=== PATIENT | male | born 1940 | race Caucasian/White ===

== ENCOUNTER → 2019-03-18 | Outpatient (CLI) | payer MEDICARE, OTHER ==
[~2019-03-18] MED LIST: ACET325 PO; ALBU2.5V5 INH; AMOCLA875 PO; ASPI81CH PO; Amaryl4 MG PO; BENZ100A PO; BYDUREON P2 MG/0.65 PO; CEPH500 PO; Colace100 MG PO; Crestor20 MG PO; ESCI10 PO; FERATE240 MG PO; FLAX SEED OIL1000 MG PO; GENPREOPSU UD; GLUC500 PO; Humalog100 UNIT/1 SC; INSUASPI; INSULANPEN SC; LUTEIN20 MG PO; METF500C PO; NAPR500EC PO; OXYM.05NI INH; Omeprazole20 M1 PO; PIME1CR TOP; Prinivil10 MG PO; TAMS.4ER PO; TRAZ100 PO; Vsl#3 Capsule1 EACH PO; XELPROS2.5 ML BOTHEYES
[2019-03-18 15:12] LABS: BASOPHILS ABSOLUTE AUTO 0.03 K/mm3 (0.00-0.23); BASOPHILS PERCENT AUTO 0 % (0-2); EOSINOPHILS PERCENT AUTO 0 % (0-6); Hematocrit 35.4 % (37.0-53.0); Hemoglobin 11.3 g/dL (13.5-17.5); IMMATURE GRAN ABSOLUTE AUTO 0.09 K/mm3 (0.00-0.10); IMMATURE GRAN PERCENT AUTO 1 % (0-1); LYMPHOCYTES ABSOLUTE AUTO 1.31 K/mm3 (0.84-5.20); LYMPHOCYTES PERCENT AUTO 9 % (21-46); MONOCYTES ABSOLUTE AUTO 1.08 K/mm3 (0.16-1.47); MONOCYTES PERCENT AUTO 7 % (4-13); Mean Corpuscular HGB 25.3 pg (26.0-34.0); Mean Corpuscular HGB Conc 31.9 g/dL (31.5-36.5); Mean Corpuscular Volume 79 fL (80-100); Mean Platelet Volume 9.1 fL (9.1-12.4); NEUTROPHILS ABSOLUTE AUTO 12.98 K/mm3 (1.96-9.15); NEUTROPHILS PERCENT AUTO 84 % (41-73); Platelet Count 380 K/mm3 (150-400); RDW Coefficient Variation 16.9 % (11.7-14.2); RDW Standard Deviation 48.7 fL (35.1-46.3); Red Blood Cell Count 4.47 M/mm3 (4.30-5.90); White Blood Cell Count 15.49 K/mm3 (4.00-11.30)
== END | disposition home or self-care (01) ==
LOC: LAB EV 15:06 → LAB SHORT 15:06
PROVIDERS: Physician Assistant
DX: K92.2 Gastrointestinal hemorrhage, unspecified (principal)
CPT/HCPCS: 85025

== ENCOUNTER → 2019-03-19 | Outpatient (CLI) | payer MEDICARE, OTHER ==
[2019-03-19 13:25] LABS: BASOPHILS ABSOLUTE AUTO 0.03 K/mm3 (0.00-0.23); BASOPHILS PERCENT AUTO 0 % (0-2); EOSINOPHILS ABSOLUTE AUTO 0.02 K/mm3 (0.00-0.68); EOSINOPHILS PERCENT AUTO 0 % (0-6); Hematocrit 34.5 % (37.0-53.0); IMMATURE GRAN ABSOLUTE AUTO 0.11 K/mm3 (0.00-0.10); IMMATURE GRAN PERCENT AUTO 1 % (0-1); LYMPHOCYTES ABSOLUTE AUTO 1.31 K/mm3 (0.84-5.20); LYMPHOCYTES PERCENT AUTO 9 % (21-46); MONOCYTES ABSOLUTE AUTO 1.04 K/mm3 (0.16-1.47); MONOCYTES PERCENT AUTO 7 % (4-13); Mean Corpuscular HGB 25.4 pg (26.0-34.0); Mean Corpuscular HGB Conc 31.9 g/dL (31.5-36.5); Mean Corpuscular Volume 80 fL (80-100); Mean Platelet Volume 8.9 fL (9.1-12.4); NEUTROPHILS ABSOLUTE AUTO 12.17 K/mm3 (1.96-9.15); NEUTROPHILS PERCENT AUTO 83 % (41-73); Platelet Count 349 K/mm3 (150-400); RDW Coefficient Variation 16.8 % (11.7-14.2); RDW Standard Deviation 47.8 fL (35.1-46.3); Red Blood Cell Count 4.33 M/mm3 (4.30-5.90); White Blood Cell Count 14.68 K/mm3 (4.00-11.30)
== END ==
LOC: LAB EV 13:20 → LAB SHORT 13:20
PROVIDERS: Physician Assistant
DX: K92.2 Gastrointestinal hemorrhage, unspecified (principal)
CPT/HCPCS: 85025

== ENCOUNTER → 2019-03-21 | Outpatient (CLI) | payer MEDICARE, OTHER ==
[2019-03-22 14:01] LABS: Stool Occult Blood Guaiac 1 Pos (Neg)
[2019-03-22 14:02] LABS: Stool Occult Blood Guaiac 2 Neg (Neg)
== END | disposition home or self-care (01) ==
LOC: LAB SHORT 08:45 → LAB EV 08:45
PROVIDERS: Physician Assistant
DX: K92.2 Gastrointestinal hemorrhage, unspecified (principal)
CPT/HCPCS: 82272

== ENCOUNTER 2019-04-01 08:14 | Day surgery (SDC) | payer MEDICARE, OTHER ==
[~2019-04-01] VITALS: Ht 175.3 cm; Wt 85.3 kg
[~2019-04-01 08:14] MED LIST changes: -ALBU2.5V5 INH; -AMOCLA875 PO; -BENZ100A PO; -BYDUREON P2 MG/0.65 PO; -Colace100 MG PO; -Crestor20 MG PO; -ESCI10 PO; -FERATE240 MG PO; -FLAX SEED OIL1000 MG PO; -GENPREOPSU UD; -Humalog100 UNIT/1 SC; -INSULANPEN SC; -METF500C PO; -OXYM.05NI INH; -Omeprazole20 M1 PO; -Prinivil10 MG PO; -TRAZ100 PO; -Vsl#3 Capsule1 EACH PO; -XELPROS2.5 ML BOTHEYES
== END 2019-04-01 08:45 | disposition home or self-care (01) ==
LOC: ORSCSDS 08:14
PROVIDERS: Internal Medicine Gastroenterology
PROC: 0DB98ZX Excision of Duodenum, Via Natural or Artificial Opening Endoscopic, Diagnostic (ICD-10-PCS; principal; 2019-04-01 09:30)
PROC: 0DJD8ZZ Inspection of Lower Intestinal Tract, Via Natural or Artificial Opening Endoscopic (ICD-10-PCS; principal; 2019-04-01 09:30)
PROC: 0DB68ZX Excision of Stomach, Via Natural or Artificial Opening Endoscopic, Diagnostic (ICD-10-PCS; principal; 2019-04-01 09:30)
DX: D50.9 Iron deficiency anemia, unspecified (principal); K29.80 Duodenitis without bleeding; K62.5 Hemorrhage of anus and rectum; K29.70 Gastritis, unspecified, without bleeding; K20.9 Esophagitis, unspecified; K57.30 Diverticulosis of large intestine without perforation or abscess without bleeding; K64.8 Other hemorrhoids; Z87.891 Personal history of nicotine dependence; E11.42 Type 2 diabetes mellitus with diabetic polyneuropathy; I10 Essential (primary) hypertension; E78.5 Hyperlipidemia, unspecified; E11.65 Type 2 diabetes mellitus with hyperglycemia; E11.51 Type 2 diabetes mellitus with diabetic peripheral angiopathy without gangrene; Z79.899 Other long term (current) drug therapy
CPT/HCPCS: 82947; 88305; 88342; J0461; J2405; J2704; J7120

== ENCOUNTER 2019-04-26 12:41 | Inpatient (IN) | payer MEDICARE, OTHER ==
[~2019-04-26] VITALS: Ht 182.9 cm; Wt 86.2 kg
[2019-04-26] MEDS ORDERED: Crestor20 MG PO (13:35)
[2019-04-26] MEDS ORDERED: ESCI10 PO (13:36)
[2019-04-26] MEDS ORDERED: INSULANPEN SC (13:36)
[2019-04-26] MEDS ORDERED: METF500C PO (13:37)
[2019-04-26] MEDS ORDERED: Prinivil10 MG PO (13:37)
[2019-04-26] MEDS ORDERED: Omeprazole20 M1 PO (13:38)
[2019-04-26] MEDS ORDERED: TRAZ100 PO (13:39)
[2019-04-26] MEDS ORDERED: BYDUREON P2 MG/0.65 PO (13:39)
[2019-04-26] MEDS ORDERED: FERATE240 MG PO (14:11)
[2019-04-26] MEDS ORDERED: FLAX SEED OIL1000 MG PO (14:12)
[2019-04-26] MEDS ORDERED: XELPROS2.5 ML BOTHEYES (14:33)
--- NOTE | 2019-04-27 04:28 | NUR ---
ED ADMIT @ 2029. [facility] PT ADMITTED FOR PNEUMONIA. LS ARE COARSE AND DIM. SOB W/ACTIVITY. LAST BM YESTERDAY. DENIES NAUSEA. PAIN RATED 4/10 "EVERYWHERE" BUT MOSTLY IN KNEES. HX OF ARTHRITIS. TYLENOL GIVEN @ 0300. PT ALSO WEARS VELCRO BRACE ON L WRIST FROM ARTHRITIS. NO SKIN ISSUES. TELE READS SINUS TACH 100'S. R AC HAS LR @ 100. VSS ON RA. PT DID RECEIVE BREATHING TX FROM RT. C/O PAIN WHEN COUGHING. PT RECEIVED ONE TIME DOSE OF ROBITUSSIN AND PRN TESSALON PEARLE @ 0130. GLUCOSE CHECKS BEFORE MEALS, LAST WAS 101. PT USES URINAL, VERY WEAK WHEN AMBULATING FROM ED WHEELCHAIR TO BED. DOES HAVE CANE WITH HIM THAT HE USES AT HOME. UNSURE OF PLAN AT THIS TIME.
[2019-04-27 05:37] LABS: BASOPHILS ABSOLUTE AUTO 0.03 K/mm3 (0.00-0.23); BASOPHILS PERCENT AUTO 0 % (0-2); EOSINOPHILS ABSOLUTE AUTO 0.09 K/mm3 (0.00-0.68); EOSINOPHILS PERCENT AUTO 1 % (0-6); Hematocrit 32.8 % (37.0-53.0); Hemoglobin 10.1 g/dL (13.5-17.5); IMMATURE GRAN ABSOLUTE AUTO 0.08 K/mm3 (0.00-0.10); IMMATURE GRAN PERCENT AUTO 1 % (0-1); LYMPHOCYTES ABSOLUTE AUTO 1.23 K/mm3 (0.84-5.20); LYMPHOCYTES PERCENT AUTO 11 % (21-46); MONOCYTES ABSOLUTE AUTO 1.66 K/mm3 (0.16-1.47); MONOCYTES PERCENT AUTO 15 % (4-13); Mean Corpuscular HGB 23.9 pg (26.0-34.0); Mean Corpuscular HGB Conc 30.8 g/dL (31.5-36.5); Mean Corpuscular Volume 78 fL (80-100); Mean Platelet Volume 9.6 fL (9.1-12.4); NEUTROPHILS ABSOLUTE AUTO 7.89 K/mm3 (1.96-9.15); NEUTROPHILS PERCENT AUTO 72 % (41-73); Platelet Count 412 K/mm3 (150-400); RDW Coefficient Variation 15.8 % (11.7-14.2); RDW Standard Deviation 43.9 fL (35.1-46.3); Red Blood Cell Count 4.22 M/mm3 (4.30-5.90); White Blood Cell Count 10.98 K/mm3 (4.00-11.30)
[2019-04-27 06:23] LABS: Alanine Aminotransfer (ALT/SGP <6 U/L (12-78); Albumin, Blood 2.1 g/dL (3.4-5.0); Albumin/Globulin Ratio 0.5 (0.8-1.8); Alk Phos 80 U/L (50-136); Anion Gap 6 mmol/L (6-16); Aspartate Aminotrans (AST/SGOT 13 U/L (12-37); Bilirubin, Total 0.3 mg/dL (0.1-1.0); Blood Urea Nitrogen 8 mg/dL (8-24); CO2, Blood 28 mmol/L (21-32); Calcium, Blood 9.2 mg/dL (8.5-10.1); Chloride, Blood 106 mmol/L (98-108); Creatinine, Blood 0.57 mg/dL (0.60-1.20); Globulin, Blood 4.4 g/dL (2.2-4.0); Glomerular Filtration Rate >60 (60-); Glucose, Blood 39 mg/dL (70-99); Potassium, Blood 3.5 mmol/L (3.5-5.5); Sodium, Blood 140 mmol/L (136-145); Total Protein, Blood 6.5 g/dL (6.4-8.2)
--- NOTE | 2019-04-27 06:33 | NUR ---
SLOT FLOOR ATTENDANT CHECKED BG THIS AM, RESULT 49. MAINSPRING REVERSE WINDER AWARE. PT RECEIVED ORANGE JUICE, CHOCOLATE PUDDING, AND EVA CRACKERS. RECHECKED AND BG WAS 163.
--- NOTE | 2019-04-27 17:58 | NUR ---
ALERT. ORIENTED. ARTHRITIS IN MOST JOINTS. MEDICATED WITH TYLENOL WHICH PATIENT STS HELPS. UNLABORED RESPIRATIONS. SLIDING SCALE INSULIN. TELE ON AND HAS BEEN ST UNDER 110. TAPE TO LEFT WRIST WHICH PATIENT SAYS IS FOR ARTHRITIS. MOIST SOUNDING COUGH WITH PATIENT REFUSING TESSALON PEARLES. BREATHE SOUNDS CLEAR TO COARSE. WCTM.
--- NOTE | 2019-04-27 21:07 | NUR ---
04/27/192104 PT YELLS FOR "IBETH" WHO IS HIS "SIGNIFICANT OTHER". RN RE-ORINTED HIM HE THOUGHT IBETH WAS TALKING IN THE HALLWAY. PT HAS BEEN IRRITABLE TOWARDS STAFF AND APPEARS FRUSTRATED ABOUT HIS EYE DROPS AND MEDICATION. RN REVIEWED HIS MEDS WITH HIM. SOMEWHAT CALMER NOW.
--- NOTE | 2019-04-27 23:47 | NUR ---
04/27/19 2330 PCU JANITOR CARETAKER CALLED THAT PT IS OFF MONITOR. PT SITTING AT BEDSIDE AND HAD TAKEN BATTERY OUT OF HEART MONITOR. DENIED DOING IT. IRRITABLE. ASSISTED BACK TO BED WITH HELP OF COREMAKER MACHINE,CALIN AND VEHICLE AND EQUIPMENT CLEANER. DENIES ANY S/S OR PAIN.
--- NOTE | 2019-04-28 02:17 | NUR ---
04/28/19 0151 CODE STROUD CALLED PT WAS TRYING TO GET OUT OF BED AND "GO TO MY BED". CONFUSED AND AGRESSIVE TONE TO VOICE. PUSHING RN AWAY WHEN RN ATTEMPTED TO HELP HIM BACK TO BED. SHANK CARRIER, CALIN, HERE. SECURITY HELPED PT TO BED AFTER HE WAS STANDING UP. BYRON VEST APPLIED FOR SAFETY AND PT TRANSFERRED TO SCU AND ROOM 347 VIA BED. REPORT GIVEN TO SANTY CADE. INFORMED SANTY OF BLADDER SCAN POST-VOID OF 650 ML.
[2019-04-28 05:04] LABS: BASOPHILS ABSOLUTE AUTO 0.04 K/mm3 (0.00-0.23); BASOPHILS PERCENT AUTO 0 % (0-2); EOSINOPHILS ABSOLUTE AUTO 0.01 K/mm3 (0.00-0.68); EOSINOPHILS PERCENT AUTO 0 % (0-6); Hematocrit 34.4 % (37.0-53.0); Hemoglobin 10.6 g/dL (13.5-17.5); IMMATURE GRAN ABSOLUTE AUTO 0.09 K/mm3 (0.00-0.10); IMMATURE GRAN PERCENT AUTO 1 % (0-1); LYMPHOCYTES ABSOLUTE AUTO 1.02 K/mm3 (0.84-5.20); LYMPHOCYTES PERCENT AUTO 6 % (21-46); MONOCYTES ABSOLUTE AUTO 1.92 K/mm3 (0.16-1.47); MONOCYTES PERCENT AUTO 12 % (4-13); Mean Corpuscular HGB Conc 30.8 g/dL (31.5-36.5); Mean Corpuscular Volume 78 fL (80-100); Mean Platelet Volume 9.3 fL (9.1-12.4); NEUTROPHILS ABSOLUTE AUTO 12.93 K/mm3 (1.96-9.15); NEUTROPHILS PERCENT AUTO 81 % (41-73); Platelet Count 419 K/mm3 (150-400); RDW Coefficient Variation 15.6 % (11.7-14.2); RDW Standard Deviation 43.9 fL (35.1-46.3); Red Blood Cell Count 4.41 M/mm3 (4.30-5.90); White Blood Cell Count 16.01 K/mm3 (4.00-11.30)
[2019-04-28 05:33] LABS: Anion Gap 9 mmol/L (6-16); Blood Urea Nitrogen 10 mg/dL (8-24); Bun/Creatinine Ratio 17.4 (12.0-20.0); CO2, Blood 26 mmol/L (21-32); Calcium, Blood 9.4 mg/dL (8.5-10.1); Chloride, Blood 100 mmol/L (98-108); Creatinine, Blood 0.58 mg/dL (0.60-1.20); Glomerular Filtration Rate >60 (60-); Glucose, Blood 211 mg/dL (70-99); Potassium, Blood 3.9 mmol/L (3.5-5.5); Sodium, Blood 135 mmol/L (136-145)
--- NOTE | 2019-04-28 07:14 | NUR ---
SHIFT SUMMARY PT WAS TRANSFERED TO MY CARE LATE IN SHIFT. PT WAS SOMEWHAT CONFUSED BUT REDIRECTABLE. PT DOES BECOME AGITATED EASILY. PT HAS TO BE REMINDED FREQUENTLY OF WHERE HE IS AT. PT CALLED HIS PARTNER MANY TIMES IN THE SHIFT. PT DID BECOME RELAXED AND UNDERSTANDING OF HIS SITUATION. PT CURRENTLY RELAXING AND IN NO DISTRESS. CALL LIGHT IN REACH
--- NOTE | 2019-04-28 10:27 | NUR ---
1882 IBETH, SIGNIFICANT OTHER , CALLED AND EXPLAINED TO THIS NURSE THAT PATIENT HAS BEEN TRAVELLING AND FORGOT HIS SLEEP MEDS RESULTING IN PATIENT BEING VERY SLEEP DEPRIVED. IBETH STATED MULTIPLE TIMES THAT THE PATIENT DOES NOT HAVE ANY MEMORY DEFICITS AND THIS BEHAVIOR IS ALL NEW. PATIENT HAS BEEN COMPLIANT THIS SHIFT THUS FAR, JUST VERY SLEEPY. HE IS ALERT AND ORIENTED, JUST VERY QUIET.
--- NOTE | 2019-04-28 15:59 | NUR ---
PATIENT HAS BEEN PLEASANT AND COOPERATIVE THIS SHIFT. HE IS AO X4 AND HAS BEEN ABLE TO EXPRESS HIS NEEDS. HE HAS HAD NO COMPLAINTS OF PAIN, NVD, OR SOB. FAMILY CALLED REGARDING HIS MEDS, THIS NURSE NOTIFIED DOCTOR. FAMILY HAS BEEN IN TODAY. NO ACUTE CHANGES.
--- NOTE | 2019-04-28 22:58 | NUR ---
BP WS 174/101 AND HR WAS 126, SPOKE WITH PT, TYLENOL GIVEN, A WHILE LATER (SEE DOC FLOW SHEETS) BP 144/88 AND HR 129. CALL PLACED TO STEAMING CABINET TENDER SHEA LAROSE NP, NOTIFIED OF ABOVE INRO. INSTRUCTED TO MONITOR FOR SYMPTOMATIC AND IF HR 135 OR MORE TO CALL BACK. OTHERWISE JUT TO MONITOR. CURRENTLY ASYMPTOMATIC.
--- NOTE | 2019-04-29 04:24 | NUR ---
INTERMITTENT RESTLESSNESS THIS SHIFT. RESIDENTIAL MANAGER TERRITORY SERVICE REPRESENTATIVE NOTIFIED OF ELEVATED BP AND HR, HR WAS UP TO 129. TERRITORY SERVICE REPRESENTATIVE STATED TO MONITOR, TO CALL BACK IF IT REACHED 135 OR MORE. ASYMPTOMATIC. CALL LIGHT IN REACH. WILL MONITOR
[2019-04-29 04:38] LABS: Hematocrit 34.9 % (37.0-53.0); Hemoglobin 10.6 g/dL (13.5-17.5); Mean Corpuscular HGB 23.7 pg (26.0-34.0); Mean Corpuscular HGB Conc 30.4 g/dL (31.5-36.5); Mean Corpuscular Volume 78 fL (80-100); Mean Platelet Volume 9.2 fL (9.1-12.4); Platelet Count 427 K/mm3 (150-400); RDW Coefficient Variation 15.7 % (11.7-14.2); RDW Standard Deviation 43.8 fL (35.1-46.3); Red Blood Cell Count 4.48 M/mm3 (4.30-5.90); White Blood Cell Count 16.75 K/mm3 (4.00-11.30)
--- NOTE | 2019-04-29 10:30 | NUR ---
Initial palliative care consult: Larry is a 78 year old with a history of DM, acid reflux, HTN, arthritis, hyperlipidemia, and a sleep disorder. He was recently traveling on a cruise in [place] with his S.O., Trupti. He reports Trupti is ill too, however she did not require being hospitalized. He was admitted with pneumonia and sepsis. He c/o generalized weakness and a mostly non-productive cough. He states his buttocks and leg upper leg hurt at times. It appears to be spasms as the discomfort comes and goes. Encouraged pt to be up out ouf bed with assist to help alleviate that discomfort. He has no other complaints. Nursing staff reports that he is oriented during the day but has some confusion during the night. He reports that is in independent with all ADLs and enjoys golfing when he is able. He lives with Trupti, a daughter, and son-in-law. He is retired from a career involving microbiology. He enjoys traveling. He states that he feels that he doesn't need any extrta assistance when he goes home. Discussed code status and AD. He confirms his desire to remain a full code. He reports he has an AD at home and his daughter, Loretta, is his designated alternate decision maker. He states he gave a copy of the AD to the hospital when he was admitted, however I am unable to locate one in the EMR or on his chart. Dr. Parsons visited with pt this morning. Plan is to continue IV antibiotics for now. Pt has no questions or concerns at this time. If back/leg discomfort isn't alleviated by repositioning and ambulation, heat might be a non phamaceutical pain relief option. PC will continue to follow for symptom managment.
--- NOTE | 2019-04-29 18:01 | NUR ---
PATIENT COMPLAINED OF FEELING WORSE THIS SHIFT. VSS. THIS NURSE ENCOURAGED PATIENT TO TRY TO GET OUT OF BED AND TO ATTEMPT TO WALK. PATIENT IS EXTREMELY WEAK AND WAS ABLE TO ONLY STAND FOR 10 SECONDS. HE COMPLAINS OF INTENSE PAIN TO HIS RIGHT KNEE AND IS VERY WEAK. WITH THE HELP OF THE AIDE WE WERE ABLE TO GET HIM TO THE CHAIR WITH HIM CONTRIBUTING ONLY 10 % OF THE EFFORT. HE STATED HE FELT BETTER IN THE CHAIR AND STAYED SEATED FOR ABOUT AN HOUR. HE AGAIN COMPLAINED OF NOT FEELING WELL AND HAD TO BE STRONGLY ASSISTED BY BOTH THE NURSE AND AIDE INTO BED. THIS NURSE FEELS HE NEEDS TO WORK WITH PT AND OT BEFORE DISCHARGE. PATIENT WAS IN [facility] PRIOR TO ADMIT SO THIS IS A GREAT DECLINE. WHEN BACK IN BED PATIENT ASKED TO SLEEP AND REFUSED DINNER . HE HAS BEEN COMPLAINT AND FRIENDLY ALL DAY AND HAS HAD NO BEHAVIOR THAT IS REPORTED BY LOADER DEMOLDER. THIS NURSE TALKED WITH FAMILY TODAY AND THEY CONFIRMED THAT PATIENT BECOMES MORE AGITATED AND "ANGRY" AT NIGHT. THE TERM SUNDOWNERS WAS USED BY BOTH NURSE AND FAMILY. PATIENT WANTS TO PARTICIPATE IN RECOVERY JUST COMPLAINS OF BEING SO WEAK. NO FEVER NOTED.
[2019-04-30 05:19] LABS: Hematocrit 33.9 % (37.0-53.0); Hemoglobin 10.3 g/dL (13.5-17.5); Mean Corpuscular HGB 23.4 pg (26.0-34.0); Mean Corpuscular HGB Conc 30.4 g/dL (31.5-36.5); Mean Corpuscular Volume 77 fL (80-100); Mean Platelet Volume 9.2 fL (9.1-12.4); Platelet Count 447 K/mm3 (150-400); RDW Coefficient Variation 15.7 % (11.7-14.2); RDW Standard Deviation 43.2 fL (35.1-46.3)
--- NOTE | 2019-04-30 05:33 | NUR ---
SALVAGE CUTTER SUMMARY NO ACUTE CHANGES IN THIS SHIFT. PT AAOX3 AND PLEASANT. CALLS APPROPRIATELY FOR ASSISTANCE. HAD A LOW GRADE TEMP OF 100.1 AT THE BEGINNING OF THE SHIFT THAT WAS RESOLVED WITH TYLENOL. PT CONTINUES TO HAVE A COUGH AND REPORTS IT NON-PRODUCTIVE AT THIS TIME. PT CONTINUES TO BE ON ANTIBIOTICS AND FLUIDS. VSS AND WILL CONTINUE TO MONITOR.
[2019-04-30 05:38] LABS: Anion Gap 4 mmol/L (6-16); Blood Urea Nitrogen 14 mg/dL (8-24); Bun/Creatinine Ratio 22.8 (12.0-20.0); CO2, Blood 30 mmol/L (21-32); Calcium, Blood 9.6 mg/dL (8.5-10.1); Chloride, Blood 102 mmol/L (98-108); Creatinine, Blood 0.62 mg/dL (0.60-1.20); Glomerular Filtration Rate >60 (60-); Glucose, Blood 163 mg/dL (70-99); Potassium, Blood 3.9 mmol/L (3.5-5.5); Sodium, Blood 136 mmol/L (136-145)
--- NOTE | 2019-04-30 17:50 | NUR ---
SHIFT SUMMARY PATIENT ALERT AND ORIENTED X4, IMPATIENT AND SHORT TEMPERED AT TIMES BUT WITHIN REASON AND THANKS STAFF FOR CARE WELL. TYLENOL GIVEN TWICE TODAY FOR LOW GRADE FEVER, DR COUCH AWARE, AND FOR PAIN. HE STATES L KNEE HURTS THE WORST BUT ALSO C/O PAIN IN OTHER JOINTS AND NECK. BILAT KNEES ARE SWOLLEN, NO REDNESS NOTED. HE HAS AN OCCASIONAL STRONG COUGH, NOT ENOUGH SPUTUM FOR A SAMPLE THOUGH. HE IS VOIDING IN THE URINAL AND PIVOTED TO THE CHAIR ONCE.
[2019-05-01 05:05] LABS: Hematocrit 36.2 % (37.0-53.0); Hemoglobin 10.8 g/dL (13.5-17.5); Mean Corpuscular HGB 23.6 pg (26.0-34.0); Mean Corpuscular HGB Conc 29.8 g/dL (31.5-36.5); Mean Corpuscular Volume 79 fL (80-100); Mean Platelet Volume 9.1 fL (9.1-12.4); Platelet Count 509 K/mm3 (150-400); RDW Coefficient Variation 15.9 % (11.7-14.2); RDW Standard Deviation 45.2 fL (35.1-46.3); Red Blood Cell Count 4.58 M/mm3 (4.30-5.90); White Blood Cell Count 15.95 K/mm3 (4.00-11.30)
[2019-05-01 05:37] LABS: Anion Gap 6 mmol/L (6-16); Blood Urea Nitrogen 13 mg/dL (8-24); Bun/Creatinine Ratio 18.9 (12.0-20.0); CO2, Blood 31 mmol/L (21-32); Calcium, Blood 9.5 mg/dL (8.5-10.1); Chloride, Blood 101 mmol/L (98-108); Creatinine, Blood 0.69 mg/dL (0.60-1.20); Glomerular Filtration Rate >60 (60-); Glucose, Blood 133 mg/dL (70-99); Sodium, Blood 138 mmol/L (136-145)
--- NOTE | 2019-05-01 05:46 | NUR ---
FURNITURE RENTAL CONSULTANT SUMMARY PT A/O X3. PT IS PLEASAMT AND COOPERATIVE. PT HAD A LOW GRADE FEVER OF 100.5. LOWERED TEMPERATURE OF THE ROOM AND GIVEN TYLENOL. LAST TEMP WAS 98. SPUTUM CULTURE IS STILL PENDING THE PATIENT HAS NOT PROVIDED ANY SPUTUM. IV ANTIBITOIC GIVEN AND PT SLEPT WELL THROUGHOUT THE NIGHT. HR CONTIUNES TO BE SLIGHTLY TACHY IN THE LOW 100'S. WILL CONTIUNE TO MONITOR.
--- NOTE | 2019-05-01 18:15 | NUR ---
SHIFT SUMMARY PATIENT ALERT AND ORIENTED X4. SPUTUM SAMPLE PROVIDED, PT HAS STRONG COUGH WITH SMALL AMT SPUTUM. PT STILL HAS LOW GRADE FEVER AND JOINT PAIN, TYLENOL GIVEN TWICE. DR COUCH AWARE OF VITALS OUT OF LIMITS. PT WORKED WITH PHYSICAL THERAPY, WALKED A FEW FEET AND SAT IN CHAIR. PT STATED THE PAIN IMPROVED AFTER MOVING AROUND A BIT. PT CONCERNED ABOUT LATANOPROST NOT BEING GIVEN EVEN THOUGH IT IS IN HOME MED LIST, DR COUCH NOTIFIED AND IT WAS ORDERED.
--- NOTE | 2019-05-02 01:32 | NUR ---
PATIENT RESTING IN BED IV ABX INFUSED.
--- NOTE | 2019-05-02 03:13 | NUR ---
SHIFT SUMMARY PATIENT HAD NO ACUTE CHANGES OBSERVED THIS SHIFT. AXOX 3 AND TWO ASSIST TO STAND AND USE URINAL AT BEDSIDE. TAKES MEDICATION WHOLE WITH WATER. TESSALON GIVEN X ONE FOR COUGH. DENIES PAIN, SOB, AND N/V. VSS/AFEBRILE. PIV REMAINS INTACT. CBG 254. IV ABX INFUSED. PATIENT REPORTS INCREASED WEAKNESS FROM NOT GETTING OUT OF BED. COOPERATIVE WITH CARE. CALL LIGHT IN REACH. BED IN LOWEST POSITION. WILL CONTINUE TO MONITOR UNTIL DAY SHIFT NURSE ASSUMES CARE.
[2019-05-02 05:09] LABS: Hematocrit 35.9 % (37.0-53.0); Hemoglobin 10.8 g/dL (13.5-17.5); Mean Corpuscular HGB 23.7 pg (26.0-34.0); Mean Corpuscular HGB Conc 30.1 g/dL (31.5-36.5); Mean Corpuscular Volume 79 fL (80-100); Mean Platelet Volume 9.1 fL (9.1-12.4); Platelet Count 544 K/mm3 (150-400); RDW Coefficient Variation 15.7 % (11.7-14.2); RDW Standard Deviation 44.7 fL (35.1-46.3); Red Blood Cell Count 4.55 M/mm3 (4.30-5.90); White Blood Cell Count 13.06 K/mm3 (4.00-11.30)
[2019-05-02 05:22] LABS: Anion Gap 6 mmol/L (6-16); Blood Urea Nitrogen 14 mg/dL (8-24); Bun/Creatinine Ratio 20.7 (12.0-20.0); CO2, Blood 29 mmol/L (21-32); Calcium, Blood 9.6 mg/dL (8.5-10.1); Chloride, Blood 103 mmol/L (98-108); Creatinine, Blood 0.68 mg/dL (0.60-1.20); Glomerular Filtration Rate >60 (60-); Glucose, Blood 128 mg/dL (70-99); Potassium, Blood 3.8 mmol/L (3.5-5.5); Sodium, Blood 138 mmol/L (136-145)
--- NOTE | 2019-05-02 19:14 | NUR ---
PT. SITTING IN BED AFTER EATING DINNER. IS MOVING BETTER THIS EVENING THAN THIS MORNING. NO NOTEABLE CHANGES THIS SHIFT.
[2019-05-02 19:47] LABS: Vancomycin, Trough 10.4 ug/mL (5.0-10.0)
--- NOTE | 2019-05-03 03:21 | NUR ---
SHIFT SUMMARY PATIENT HAD NO ACUTE CHANGES OBSERVED. AXOX 3 AND TWO ASSIST TO BSC. USES URINAL AT BEDSIDE. PIV REMAINS INTACT. IV ABX INFUSED. CBG 201. VSS/AFEBRILE. DENIES PAIN, SOB, AND N/V. TESSALON GIVEN X TWO FOR COUGH PER EMAR. PATIENT REPORTS REDUCED COUGH. PATIENT ABLE TO SLEEP MOST OF THE SHIFT. CALL LIGHT IN REACH. BED IN LOWEST POSITION. WILL CONTINUE TO MONITOR UNTIL DAY SHIFT NURSE ASSUMES CARE.
[2019-05-03 05:18] LABS: Hematocrit 36.3 % (37.0-53.0); Hemoglobin 10.9 g/dL (13.5-17.5); Mean Corpuscular HGB 23.7 pg (26.0-34.0); Mean Corpuscular Volume 79 fL (80-100); Mean Platelet Volume 9.1 fL (9.1-12.4); Platelet Count 551 K/mm3 (150-400); RDW Coefficient Variation 15.7 % (11.7-14.2); RDW Standard Deviation 44.9 fL (35.1-46.3); Red Blood Cell Count 4.59 M/mm3 (4.30-5.90)
--- NOTE | 2019-05-03 18:36 | NUR ---
PT. UP IN A CHAIR FOR DINNER. PT. AMB IN [place] WITH PT. TODAY HAD TO REST LONG-TERM DOWN THE [place]. REPORTING NECK PAIN TODAY FOR WHICH I GIVE HIM 650 MG OF TYLENOL. POSSIBLE DISCHARGE TO SNF TOMORROW, PER PT. RECCOMENDATION.
--- NOTE | 2019-05-04 03:25 | NUR ---
SHIFT SUMMARY PATIENT HAD NO ACUTE CHANGES OBSERVED. AXOX 3 AND 1-2 PERSON ASSIST TO BSC. USES URINAL AT BS. ORAL AUGMENTIN STARTED. CBG 244. VSS/AFBERILE. DENIES PAIN, SOB, AND N/V. COUGHING AT BEGINNING OF SHIFT AND RESOLVED WITHOUT MEDS. REPORTS FEELING STRONGER TODAY. PATIENT WANTED TO GO TO BED EARLIER IN SHIFT. CALL LIGHT IN REACH. BED IN LOWEST POSITION. WILL CONTINUE TO MONITOR UNTIL DAY SHIFT NURSE ASSUMES CARE.
[2019-05-04 05:18] LABS: Hematocrit 38.6 % (37.0-53.0); Hemoglobin 11.4 g/dL (13.5-17.5); Mean Corpuscular HGB 23.3 pg (26.0-34.0); Mean Corpuscular HGB Conc 29.5 g/dL (31.5-36.5); Mean Corpuscular Volume 79 fL (80-100); Mean Platelet Volume 8.7 fL (9.1-12.4); Platelet Count 566 K/mm3 (150-400); RDW Coefficient Variation 15.6 % (11.7-14.2); RDW Standard Deviation 44.4 fL (35.1-46.3); White Blood Cell Count 11.73 K/mm3 (4.00-11.30)
--- NOTE | 2019-05-04 05:57 | NUR ---
TESSALON GIVEN X ONE FOR COUGHING PER EMAR.
[2019-05-04 11:32] LABS: Anion Gap 8 mmol/L (6-16); Blood Urea Nitrogen 18 mg/dL (8-24); CO2, Blood 27 mmol/L (21-32); Calcium, Blood 9.6 mg/dL (8.5-10.1); Chloride, Blood 100 mmol/L (98-108); Glomerular Filtration Rate >60 (60-); Glucose, Blood 234 mg/dL (70-99); Potassium, Blood 4.3 mmol/L (3.5-5.5); Sodium, Blood 135 mmol/L (136-145)
--- NOTE | 2019-05-04 14:18 | NUR ---
HE RECENTLY AMBULATED WITH PT. HE WAS UP IN THE CHAIR FOR LUNCH BEFORE THAT. HE HAS BEEN RUNNING A LOW GRADE FEVER. ORDERED MORE LABS TODAY AND AN EKG. IV VANCO GIVEN AND A LITER BOLUS OF NORMAL SALINE. NOW MAINTENENCE FLUIDS ARE INFUSING. CBG'S STABLE.LABS IMPROVED.
--- NOTE | 2019-05-04 16:07 | NUR ---
HE HAS BEEN SLEEPING THE PAST HOUR OR SO.
--- NOTE | 2019-05-04 16:36 | NUR ---
HE RESTS WELL DURING THE DAY. HE HAS BEEN UP IN THE CHAIR X1 AND AMBULATED X1. HE SAYS HIS ARTHRITIS MAKES IT HARD FOR HIM TO GET AROUND. WILL ASSIST HIM UP AGAIN AT DINNERTIME. TEMP DOWN TO 99.1 FROM 100.4. IV ANTIBIOTIC RE-STARTED. IV BOLUS GIVEN. CONTINUOUS IV FLUIDS INFUSING. EKG WAS DONE. HE REMAINS SINUS TACH. HE HAS A NON-PRODUCTIVE COUGH. LAST RESP RATE ON VS WAS 28/MIN. HE DOES NOT C/O SOB BUT ADMITS TO A LITTLE SOB WHEN ASKED. I JUST PUT 2L NC ON HIM TO SEE HOW IT AFFECTS HIS RESP RATE AND O2 SAT. LABS THIS MORNING AND THIS AFTERNOON WERE GOOD.
--- NOTE | 2019-05-04 18:50 | NUR ---
TYLENOL GIVEN FOR PAIN IN JOINTS, TERENCE. HIS FOOT.
--- NOTE | 2019-05-04 20:54 | NUR ---
PATIENT LAYING IN BED, ABLE TO STATE NAME AND . CONFUSED ON PLACE AND TIME, AND SITUATION. PLEASANT AND COOPERATIVE. ASSESSMENT COMPLETED SEE CHART. MEDS GIVEN PER EMAR. REFUSED TO TAKE PREDNISONE EYE DROPS STATES HE DOES NOT TAKE THEM. IV INFUSING WITH NO PROBLEMS. STATES PAIN IS GOOD JUST HAD TYELNOL. DENIES ANY NEEDS AT THIS TIME. CALL LIGHT IN REACH. WILL CONTINUE TO PROVIDE CARE AND MONITORING.
--- NOTE | 2019-05-05 06:26 | NUR ---
SHIFT SUMMARY: 78 Y/O MALE, MILDLY CONFUSED. HAS BEEN PLEASANT ALL NIGHT. MEDICATIONS WERE GIVEN PER EMAR. IV INFUSED WITH NO PROBLEMS. PATIENT SLEPT THROUGHOUT THE NIGHT. HE HAD NO ACUTE CHANGES OR CONCERNS THIS SHIFT.
--- NOTE | 2019-05-05 12:09 | NUR ---
HE IS RESTING IN BED. HE WAS UP IN THE CHAIR FOR BREAKFAST. HE HAD A CXR DOWNSTAIRS BEFORE BREAKFAST. NO FEVER. IVF'S CONTINUE AND IV VANCO ORDERED.HIS JUST VISITED. SHE DID NOT STAY LONG. HE DID NOT WELCOME HER. NO OBVIOUS SWELLING IN HIS KNEES. HE SAYS THEY ARE RED AND SWOLLEN INTERMITTENTLY. HE AMBULATES WITH DIFFICULTY D/T HIS ARHTRITIS.
--- NOTE | 2019-05-05 14:38 | NUR ---
HE AMB IN THE [place] WITH PT. HOPE TO SHOWER HIM NEXT. HIS STAYED LONGER THAN I THOUGHT EARLIER. NO PROBLEMS. HE IS MOVING BETTER TODAY THAN YESTERDAY.
--- NOTE | 2019-05-05 16:40 | NUR ---
HE HAS MOBILIZED EASIER TODAY THAN YESTERDAY. IVF'S CONTINUE. VOIDING REGULARLY. HE HAD A PVR OF 356 MLS ON THE BLADDER SCAN. HE WAS NOT SURPRISED. NO BLADDER DISCOMFORT. HIS COUGH SOUNDS DRYER TODAY. LUNGS CLEAR, A LITTLE DIMINISHED. AFTERNOON BP BETTER TODAY. NO FEVER TODAY. CBG'S STABLE.
--- NOTE | 2019-05-05 19:41 | NUR ---
SARAHI WAS SITTING ON SIDE OF BED, APPEARS TO BE ORIENTED AT THIS TIME. STATES HE MIGHT BE ABLE TO GO TO SNF TOMORROW HIS GAIT IS STILL WEAK. STATES SOB ON EXERTION, HE JUST GOT BACK FROM THE BATHROOM. HR WAS ELEVATED TO THE 126 ON RETAKE WAS 116 AND COMING DOWN HE GOT HIS BREATH. ONCE LAYING IN BED SOB RESOLVED. HE DENIED PAIN OR DISCOMFORT OTHER THEN HIS LOWER BACK PAIN WHICH WAS MINIMAL. WILL CONTINUE TO MONITOR AT THIS TIME. CALL LIGHT IN REACH.
--- NOTE | 2019-05-06 05:25 | NUR ---
SHIFT SUMMARY: SARAHI HAD A GOOD NIGHT SLEEPING MOST OF IT. HE STATES IT TOOK HIM AWHILE TO GET TO SLEEP BUT ONCE ASLEEP HE DID WELL. HE TOOK MEDS WITH NO PROBLEMS, WAS UP TO THE BATHROOM WITH MINIMAL ASSIST. USED URINAL MOST OF THE NIGHT. DENIED ANY ACUTE CHANGES OR CONCERNS THIS SHIFT. WILL REPORT TO DAY SHIFT RN.
[2019-05-06] MEDS ORDERED: ACET325 PO (12:54)
[2019-05-06] MEDS ORDERED: ALBU2.5V5 INH (12:55)
[2019-05-06] MEDS ORDERED: AMOCLA875 PO (12:56)
[2019-05-06] MEDS ORDERED: Colace100 MG PO (12:57)
[2019-05-06] MEDS ORDERED: BENZ100A PO (12:57)
[2019-05-06] MEDS ORDERED: Humalog100 UNIT/1 SC (12:58)
[2019-05-06] MEDS ORDERED: Vsl#3 Capsule1 EACH PO (12:59)
[2019-05-06] MEDS ORDERED: OXYM.05NI INH (13:00)
[2019-05-06] MEDS ORDERED: GENPREOPSU UD (13:01)
--- NOTE | 2019-05-06 14:16 | NUR ---
DISCHARGE NOTE NO IV ACCESS. DISCHARGE MEDICATIONS/ORDERS FAXED TO [facility]. FAMILY NOTIFIED OF TRANSFER. HANDOFF CALLED TO [facility] NURSE TABITHA. SHE HAD NO FURTHER QUESTIONS. PT DRESSED IN PERSONAL CLOTHING. PERSONAL BELONGINGS GATHERED AND SENT WITH FOR TRANSPORT TO [facility]. PACKET AND FACESHEET PROVIDED TO HELICOPTER CREW CHIEF.
== END 2019-05-06 14:04 | DRG 871 ==
LOC: ER 12:41 → ERHOLD 14:42 → MEDS 14:42
PROVIDERS: Internal Medicine; ADMIT Internal Medicine
DX: A41.9 Sepsis, unspecified organism (principal); J18.9 Pneumonia, unspecified organism; J96.01 Acute respiratory failure with hypoxia; R65.20 Severe sepsis without septic shock; E11.9 Type 2 diabetes mellitus without complications; I10 Essential (primary) hypertension; D64.9 Anemia, unspecified; K21.9 Gastro-esophageal reflux disease without esophagitis; H40.9 Unspecified glaucoma; E78.5 Hyperlipidemia, unspecified; Z88.0 Allergy status to penicillin; Z79.4 Long term (current) use of insulin; Z87.891 Personal history of nicotine dependence
CPT/HCPCS: 36415; 71046; 71250; 80048; 80053; 80202; 82947; 83605; 85025; 85027; 87040; 87070; 87205; 93005; 93010; 94640; 94760; 96361; 96374; 96375; 97110; 97116; 97162; 97530; 99285-25; A9270; J0456; J0696; J1650; J2543; J3370; J7030; J7050; J7120

== ENCOUNTER → 2020-01-01 | Outpatient (CLI) | payer MEDICARE, OTHER ==
[~2020-01-01] MED LIST changes: +ALBU2.5V5 INH; +AMOCLA875 PO; +BENZ100A PO; +BYDUREON P2 MG/0.65 PO; +Colace100 MG PO; +Crestor20 MG PO; +ESCI10 PO; +FERATE240 MG PO; +FLAX SEED OIL1000 MG PO; +GENPREOPSU UD; +Humalog100 UNIT/1 SC; +INSULANPEN SC; +METF500C PO; +OXYM.05NI INH; +Omeprazole20 M1 PO; +Prinivil10 MG PO; +TRAZ100 PO; +Vsl#3 Capsule1 EACH PO; +XELPROS2.5 ML BOTHEYES
[2020-01-01 15:43] LABS: BODY FLUID RBC 0.009 M/mm3 (0-0); RBC Count, Synovial Fluid 9000 /mm3 (0-0)
[2020-01-01 15:51] LABS: WBC Count, Synovial Fluid 12192 /mm3 (0-180)
[2020-01-01 16:11] LABS: Body Fluid Crystals NEG (NEGATIVE)
[2020-01-01 16:44] LABS: Lymphs, Synovial Fluid 8 % (0-15); Monocytes/Macrophages, Synovia 41 % (0-65); Neutrophils, Synovial Fluid 51 % (0-24)
[2020-01-01 16:45] LABS: Appearance, Synovial Fluid Cloudy (Clear); Color, Synovial Fluid Dark Yellow (None-P Yel)
== END | disposition home or self-care (01) ==
LOC: LAB SHORT 14:45 → LAB 14:45
PROVIDERS: Orthopaedic Surgery
DX: M25.462 Effusion, left knee (principal)
CPT/HCPCS: 87070; 87075; 87205; 89051; 89060

== ENCOUNTER → 2021-03-06 | Outpatient (CLI) | payer MEDICARE, OTHER ==
[2021-03-08 14:38] LABS: CORONAVIRUS (COVID19) CSH-NRL Negative (Negative)
== END | disposition home or self-care (01) ==
LOC: LAB SHORT 16:45 → LAB 16:45
PROVIDERS: Family Medicine
DX: Z20.822 Contact with and (suspected) exposure to COVID-19 (principal)
CPT/HCPCS: U0003

== ENCOUNTER → 2022-03-17 | Outpatient (CLI) | payer MEDICARE, OTHER ==
[2022-03-17 10:14] LABS: BASOPHILS ABSOLUTE AUTO 0.05 K/mm3 (0.00-0.23); BASOPHILS PERCENT AUTO 1 % (0-2); EOSINOPHILS ABSOLUTE AUTO 0.04 K/mm3 (0.00-0.68); EOSINOPHILS PERCENT AUTO 0 % (0-6); Hematocrit 44.5 % (37.0-53.0); Hemoglobin 14.3 g/dL (13.5-17.5); IMMATURE GRAN ABSOLUTE AUTO 0.04 K/mm3 (0.00-0.10); IMMATURE GRAN PERCENT AUTO 0 % (0-1); LYMPHOCYTES ABSOLUTE AUTO 0.66 K/mm3 (0.84-5.20); LYMPHOCYTES PERCENT AUTO 7 % (21-46); MONOCYTES ABSOLUTE AUTO 1.88 K/mm3 (0.16-1.47); MONOCYTES PERCENT AUTO 19 % (4-13); Mean Corpuscular HGB 26.9 pg (26.0-34.0); Mean Corpuscular HGB Conc 32.1 g/dL (31.5-36.5); Mean Corpuscular Volume 84 fL (80-100); Mean Platelet Volume 9.5 fL (9.1-12.4); NEUTROPHILS ABSOLUTE AUTO 7.51 K/mm3 (1.96-9.15); NEUTROPHILS PERCENT AUTO 74 % (41-73); Platelet Count 269 K/mm3 (150-400); RDW Coefficient Variation 13.8 % (11.7-14.2); RDW Standard Deviation 41.9 fL (35.1-46.3); Red Blood Cell Count 5.32 M/mm3 (4.30-5.90); White Blood Cell Count 10.18 K/mm3 (4.00-11.30)
[2022-03-17 10:26] LABS: Albumin, Blood 3.7 g/dL (3.4-5.0); Albumin/Globulin Ratio 0.8 (0.8-1.8); Bilirubin, Total 0.4 mg/dL (0.1-1.0); Bun/Creatinine Ratio 15.1 (12.0-20.0); Calcium, Blood 10.1 mg/dL (8.5-10.1); Creatinine, Blood 0.93 mg/dL (0.60-1.20); Globulin, Blood 4.5 g/dL (2.2-4.0); Potassium, Blood 4.6 mmol/L (3.5-5.5); Total Protein, Blood 8.2 g/dL (6.4-8.2)
== END ==
LOC: LAB SHORT 10:09
PROVIDERS: Physician Assistant
DX: R00.0 Tachycardia, unspecified (principal)
CPT/HCPCS: 80053; 85025

== ENCOUNTER → 2023-02-22 | Outpatient (CLI) | payer MEDICARE, OTHER ==
[2023-02-22 15:50] LABS: BASOPHILS ABSOLUTE AUTO 0.02 K/mm3 (0.00-0.23); BASOPHILS PERCENT AUTO 0 % (0-2); EOSINOPHILS ABSOLUTE AUTO 0.18 K/mm3 (0.00-0.68); EOSINOPHILS PERCENT AUTO 2 % (0-6); Hematocrit 41.5 % (37.0-53.0); Hemoglobin 13.1 g/dL (13.5-17.5); IMMATURE GRAN ABSOLUTE AUTO 0.02 K/mm3 (0.00-0.10); IMMATURE GRAN PERCENT AUTO 0 % (0-1); LYMPHOCYTES ABSOLUTE AUTO 1.24 K/mm3 (0.84-5.20); LYMPHOCYTES PERCENT AUTO 15 % (21-46); MONOCYTES ABSOLUTE AUTO 0.92 K/mm3 (0.16-1.47); MONOCYTES PERCENT AUTO 11 % (4-13); Mean Corpuscular HGB 28.9 pg (26.0-34.0); Mean Corpuscular HGB Conc 31.6 g/dL (31.5-36.5); Mean Corpuscular Volume 91 fL (80-100); Mean Platelet Volume 9.7 fL (9.1-12.4); NEUTROPHILS ABSOLUTE AUTO 6.07 K/mm3 (1.96-9.15); NEUTROPHILS PERCENT AUTO 72 % (41-73); Platelet Count 292 K/mm3 (150-400); RDW Coefficient Variation 13.1 % (11.7-14.2); Red Blood Cell Count 4.54 M/mm3 (4.30-5.90); White Blood Cell Count 8.45 K/mm3 (4.00-11.30)
[2023-02-22 17:09] LABS: Alanine Aminotransfer (ALT/SGP 16 U/L (12-78); Albumin, Blood 3.6 g/dL (3.4-5.0); Albumin/Globulin Ratio 0.9 (0.8-1.8); Alk Phos 83 U/L (50-136); Anion Gap 8 mmol/L (6-16); Aspartate Aminotrans (AST/SGOT 20 U/L (12-37); Bilirubin, Total 0.3 mg/dL (0.1-1.0); Blood Urea Nitrogen 35 mg/dL (8-24); Bun/Creatinine Ratio 42.2 (12.0-20.0); CHOL/HDL RATIO 3.1; CO2, Blood 25 mmol/L (21-32); Calcium, Blood 10.1 mg/dL (8.5-10.1); Chloride, Blood 105 mmol/L (98-108); Cholesterol 134 mg/dL (50-200); Creatinine, Blood 0.83 mg/dL (0.60-1.20); Ferritin, Serum 39 ng/mL (26-388); Globulin, Blood 3.8 g/dL (2.2-4.0); Glomerular Filtration Rate 88 (60-); Glucose, Blood 80 mg/dL (70-99); HDL Cholesterol 43 mg/dL (>39); Iron Serum 38 ug/dL (65-175); LDL/HDL RATIO 1.7; Low Density Lipoprotein Chol 72 mg/dL (0-110); Percent Saturation 9.8 % (20.0-50.0); Potassium, Blood 4.9 mmol/L (3.5-5.5); Prostate Specific Antigen 0.705 ng/mL (0.000-4.000); Sodium, Blood 138 mmol/L (136-145); Total Iron Binding Capacity 387 ug/dL (250-450); Total Protein, Blood 7.4 g/dL (6.4-8.2); Triglycerides 93 mg/dL (30-160); Very Low Density Lipoprot Chol 18 mg/dL (6-32)
== END | disposition home or self-care (01) ==
LOC: LAB 12:53 → LAB SHORT 12:53
PROVIDERS: Family Medicine
DX: Z12.5 Encounter for screening for malignant neoplasm of prostate (principal); E11.649 Type 2 diabetes mellitus with hypoglycemia without coma; E11.21 Type 2 diabetes mellitus with diabetic nephropathy; E78.2 Mixed hyperlipidemia; I10 Essential (primary) hypertension; E61.1 Iron deficiency
CPT/HCPCS: 80053; 80061; 82728; 83036; 83540; 83550; 85025; G0103

== ENCOUNTER → 2023-03-18 | Outpatient (CLI) | payer MEDICARE, OTHER | LOC: LAB SHORT 13:33 → LAB 13:33 | DX: N39.0 Urinary tract infection, site not specified (principal) | CPT/HCPCS: 87086 ==

== ENCOUNTER 2024-11-16 19:09 | Inpatient (IN) | payer MEDICARE, OTHER ==
[~2024-11-16] VITALS: Ht 172.7 cm; Wt 82.2 kg
[2024-11-16 20:09] LABS: BASOPHILS ABSOLUTE AUTO 0.04 K/mm3 (0.00-0.23); BASOPHILS PERCENT AUTO 0 % (0-2); EOSINOPHILS ABSOLUTE AUTO 0.03 K/mm3 (0.00-0.68); EOSINOPHILS PERCENT AUTO 0 % (0-6); Hemoglobin 10.3 g/dL (13.5-17.5); IMMATURE GRAN ABSOLUTE AUTO 0.08 K/mm3 (0.00-0.10); IMMATURE GRAN PERCENT AUTO 0 % (0-1); LYMPHOCYTES ABSOLUTE AUTO 0.73 K/mm3 (0.84-5.20); LYMPHOCYTES PERCENT AUTO 4 % (21-46); MONOCYTES ABSOLUTE AUTO 1.88 K/mm3 (0.16-1.47); MONOCYTES PERCENT AUTO 10 % (4-13); Mean Corpuscular HGB 26.8 pg (26.0-34.0); Mean Corpuscular HGB Conc 29.4 g/dL (31.5-36.5); Mean Corpuscular Volume 91 fL (80-100); Mean Platelet Volume 8.9 fL (9.1-12.4); NEUTROPHILS ABSOLUTE AUTO 16.03 K/mm3 (1.96-9.15); NEUTROPHILS PERCENT AUTO 85 % (41-73); NRBC ABSOLUTE 0.02 K/mm3 (0.00-0.02); NRBC Auto 0.1 /100 WBC (0.0-0.2); Platelet Count 447 K/mm3 (150-400); RDW Coefficient Variation 15.5 % (11.7-14.2); RDW Standard Deviation 51.2 fL (35.1-46.3); Red Blood Cell Count 3.85 M/mm3 (4.30-5.90); White Blood Cell Count 18.79 K/mm3 (4.00-11.30)
[2024-11-16 20:29] LABS: Albumin, Blood 2.8 g/dL (3.4-5.0); Albumin/Globulin Ratio 0.6 (0.8-1.8); Bilirubin, Total 0.3 mg/dL (0.1-1.0); Bun/Creatinine Ratio 31.4 (12.0-20.0); Calcium, Blood 9.3 mg/dL (8.5-10.1); Creatinine, Blood 0.86 mg/dL (0.60-1.20); Globulin, Blood 4.4 g/dL (2.2-4.0); Potassium, Blood 4.8 mmol/L (3.5-5.5); Total Protein, Blood 7.2 g/dL (6.4-8.2)
[2024-11-16] MEDS ORDERED: Lactated Ringer's 1,000 ML IV ONE (21:25)
[2024-11-16] MEDS ORDERED: CefTRIAXone Sodium 1,000 MG in NS 50 ML IV ONE (23:10)
[2024-11-16] MEDS ORDERED: Azithromycin 500 MG in NS 250 ML IV ONE (23:10)
[2024-11-16] MEDS ORDERED: Ondansetron HCl 2 MG / ML 2ML Vial IV ONE (23:40)
[2024-11-17] MEDS ORDERED: NS 1,000 ML IV SCH ×2 (01:00→15:09)
[2024-11-17] MEDS ORDERED: HydrALAZINE HCl 20 MG / ML 1ML Vial IV PRN (02:10)
[2024-11-17 02:41] VITALS: BP 120/67
--- NOTE | 2024-11-17 05:14 | NUR ---
ADMIT RECIEVED FROM ER WITH DX OF SOB. PT IS INDEPENDENT IN ROOM STEADY ON FEET. A&OX4, ORIENTED TO ROOM DENIES PAIN OR NEEDS AT THIS TIME. HE REPORTED HE DID NOT KNOW WHAT MEDICATIONS HE WAS TAKING SO I WAS UNABLE TO UPDATE MEDICATION LIST AT THIS TIME. PT ON 4L VIA NC. AT OT T/O NOGHT PT TOOK OXYGEN OFF AND SPO2 DECREASED TO LOW 80S, ONCE O2 WAS REPLACED PT RECOVERED EASILY. NO SOB WAS NOTED WHILE PT WAS AMBULATING TO BATHROOM.
[2024-11-17 05:40] VITALS: BP 135/82
[2024-11-17] MEDS ORDERED: Insulin Regular 100 UNIT/ML 10ML Vial SC SCH (06:00)
[2024-11-17 06:22] LABS: BASOPHILS PERCENT AUTO 0 % (0-2); EOSINOPHILS PERCENT AUTO 0 % (0-6); Hematocrit 31.8 % (37.0-53.0); Hemoglobin 9.3 g/dL (13.5-17.5); IMMATURE GRAN ABSOLUTE AUTO 0.08 K/mm3 (0.00-0.10); LYMPHOCYTES PERCENT AUTO 4 % (21-46); MONOCYTES PERCENT AUTO 12 % (4-13); Mean Corpuscular HGB 26.7 pg (26.0-34.0); Mean Corpuscular HGB Conc 29.2 g/dL (31.5-36.5); Mean Corpuscular Volume 91 fL (80-100); Mean Platelet Volume 9.2 fL (9.1-12.4); NEUTROPHILS PERCENT AUTO 83 % (41-73); Platelet Count 407 K/mm3 (150-400); RDW Coefficient Variation 15.6 % (11.7-14.2); RDW Standard Deviation 51.2 fL (35.1-46.3); Red Blood Cell Count 3.48 M/mm3 (4.30-5.90); White Blood Cell Count 17.81 K/mm3 (4.00-11.30)
[2024-11-17 06:47] LABS: BASOPHILS ABSOLUTE AUTO 0.04 K/mm3 (0.00-0.23); EOSINOPHILS ABSOLUTE AUTO 0.03 K/mm3 (0.00-0.68); IMMATURE GRAN PERCENT AUTO 1 % (0-1); LYMPHOCYTES ABSOLUTE AUTO 0.72 K/mm3 (0.84-5.20); MONOCYTES ABSOLUTE AUTO 2.11 K/mm3 (0.16-1.47); NEUTROPHILS ABSOLUTE AUTO 14.48 K/mm3 (1.96-9.15); RETICULOCYTE ABSOLUTE 0.1383 M/mm3 (0.0200-0.1100); RETICULOCYTE COUNT PERCENT 3.95 % (0.50-2.50)
[2024-11-17 07:17] VITALS: BP 132/74
[2024-11-17 07:17] LABS: Bun/Creatinine Ratio 34.7 (12.0-20.0); Calcium, Blood 9.1 mg/dL (8.5-10.1); Creatinine, Blood 0.78 mg/dL (0.60-1.20); Percent Saturation 6.4 % (20.0-50.0); Potassium, Blood 4.7 mmol/L (3.5-5.5)
[2024-11-17] MEDS ORDERED: Enoxaparin 40 MG/0.4 ML SYR SC SCH (09:00)
[2024-11-17] MEDS ORDERED: Lactobacil 2-S.Thermo-Bifido 1 1 Cap PO SCH (09:00)
[2024-11-17 15:35] VITALS: BP 112/64
[2024-11-17] MEDS ORDERED: Ipratropium/Albuterol SulF 2.5-0.5MG/3 ML Amp INH PRN (16:10)
[2024-11-17] MEDS ORDERED: Ondansetron HCl 2 MG / ML 2ML Vial IV PRN (16:15)
[2024-11-17] MEDS ORDERED: Ketorolac Tromethamine 15mg Vial IV PRN (16:25)
--- NOTE | 2024-11-17 17:19 | NUR ---
pt has remained npo and started on fluids for further testing. pt has had minimal c/o pain and refusus medication. pt aslo has been refusing scheduled insulin
[2024-11-17 19:38] VITALS: BP 115/68
[2024-11-17] MEDS ORDERED: Latanoprost 0.005% Opth Soln 2.5 ML BOTHEYES SCH (21:00)
[2024-11-17] MEDS ORDERED: CefTRIAXone Sodium 1,000 MG in NS 100 ML IV SCH (21:00)
[2024-11-17] MEDS ORDERED: Azithromycin 500 MG in NS 250 ML IV SCH (21:00)
[2024-11-17 23:31] VITALS: BP 115/68
--- NOTE | 2024-11-18 04:05 | NUR ---
SHIFT SUMMARY PATIENT HAD NO ACUTE CHANGES. NPO. ALERT ORIENTED AND SBA TO BSC. USES URINAL AT BEDSIDE. ON 4L O2 NC AND RA BASELINE. DENIES CHEST PAIN AND N/V. SOB WITH EXERTION. VSS/AFEBRILE. PIV INTACT. NS INFUSING @ 200mL/HR. IV ABXS INFUSED. CBG 219 REFUSING INSULIN BEING NPO. AWAKE MOST OF THE SHIFT. CALL LIGHT IN REACH. BED IN LOWEST POSITION. WILL CONTINUE TO MONITOR UNTIL DAY SHIFT NURSE ASSUMES CARE.
[2024-11-18 05:08] VITALS: BP 119/69
[2024-11-18 06:09] LABS: BASOPHILS ABSOLUTE AUTO 0.02 K/mm3 (0.00-0.23); BASOPHILS PERCENT AUTO 0 % (0-2); EOSINOPHILS ABSOLUTE AUTO 0.05 K/mm3 (0.00-0.68); EOSINOPHILS PERCENT AUTO 0 % (0-6); Hematocrit 29.9 % (37.0-53.0); Hemoglobin 8.7 g/dL (13.5-17.5); IMMATURE GRAN ABSOLUTE AUTO 0.03 K/mm3 (0.00-0.10); IMMATURE GRAN PERCENT AUTO 0 % (0-1); LYMPHOCYTES ABSOLUTE AUTO 0.72 K/mm3 (0.84-5.20); LYMPHOCYTES PERCENT AUTO 6 % (21-46); MONOCYTES PERCENT AUTO 18 % (4-13); Mean Corpuscular HGB 26.4 pg (26.0-34.0); Mean Corpuscular HGB Conc 29.1 g/dL (31.5-36.5); Mean Corpuscular Volume 91 fL (80-100); Mean Platelet Volume 9.1 fL (9.1-12.4); NEUTROPHILS ABSOLUTE AUTO 8.47 K/mm3 (1.96-9.15); NEUTROPHILS PERCENT AUTO 74 % (41-73); Platelet Count 392 K/mm3 (150-400); RDW Coefficient Variation 15.5 % (11.7-14.2); RDW Standard Deviation 51.5 fL (35.1-46.3); Red Blood Cell Count 3.29 M/mm3 (4.30-5.90); White Blood Cell Count 11.39 K/mm3 (4.00-11.30)
[2024-11-18 06:30] LABS: Albumin, Blood 2.6 g/dL (3.4-5.0); Albumin/Globulin Ratio 0.8 (0.8-1.8); Bilirubin, Total 0.3 mg/dL (0.1-1.0); Bun/Creatinine Ratio 39.7 (12.0-20.0); Calcium, Blood 8.5 mg/dL (8.5-10.1); Creatinine, Blood 0.58 mg/dL (0.60-1.20); Globulin, Blood 3.4 g/dL (2.2-4.0); Potassium, Blood 4.4 mmol/L (3.5-5.5)
[2024-11-18 07:22] VITALS: BP 121/60
[2024-11-18 15:18] VITALS: BP 93/65
--- NOTE | 2024-11-18 18:38 | NUR ---
SUMMARY- PT A/O X4, WITH PERIODS OF MILD FORGETFULNESS. GOT OOB UNATTENDED AND FOUND HAVING CRAWLED OVER BED RAIL FIRST THING THIS AM. BECAME MORE ORIENTED THE DAY PROGRESSED. SBA TO BATHROOM. TOLERATING CLEAR LIQ DIET. NORMOACTIVE BOWEL TONES, STATED SMALL BM THIS AM. IVF INFUSING T/O SHIFT, TO COMPLETE THIS BAG AND SL ONCE PT TOLERATING PO INTAKE. BLOOD SUGARS CHECKED Q6, LUNCH ADMIN 2UNITS, RESPONDED WELL TO INSULIN, HELD 1800 DOSE FOR SUGAR JUST ABOVE 150 SUGAR HAD DROPPED SIGNIFICANTLY FROM INITIAL INSULIN DOSE. PRESENT IN ROOM MOST OF THE DAY, SUPPORTIVE IN CAER. LUNGS DIM IN BASES, OCC UPPER WHEEZE, PT DESATS TO 75% ON ROOM AIR, CONTINUALLY TAKING OFF OXYGEN, CONT PULSE OXIM. IN USE, REMINDED PT TO LEAVE O2 IN PLACE. WILL REPORT TO NOC RN
[2024-11-18] MEDS ORDERED: NS 1,000 ML IV SCH (19:25)
[2024-11-18 19:49] VITALS: BP 129/65
[2024-11-18] MEDS ORDERED: TraZODone HCl 100 MG Tab PO SCH (21:50)
--- NOTE | 2024-11-19 05:00 | NUR ---
SHIFT SUMMARY NOC PT A/O X 4. PLEASANT AND COOPERATIVE WITH CARE. VSS. CBG CHANGED TO AC/HS WITH LISPRO AC COVERAGE. HS CBG 213 CNI. PT ON 3L/NC SPO2 >92%. PT HAS U/S THORACENTESIS SCHEDULED FOR TODAY. PT RECEIVING NS @ 100 ML/HR, AND IV ABX PER EMAR. PT HAD C/O OF NOT BEING ABLE TO SLEEP AND HOME DOSE OF TRAZADONE 200 MG ORDERED AND GIVEN. PT CURRENTLY RESTING WITH BED IN LOWEST POSITION, AND CALL LIGHT WITHIN REACH.
[2024-11-19 06:01] LABS: BASOPHILS ABSOLUTE AUTO 0.02 K/mm3 (0.00-0.23); BASOPHILS PERCENT AUTO 0 % (0-2); EOSINOPHILS PERCENT AUTO 1 % (0-6); Hematocrit 30.1 % (37.0-53.0); Hemoglobin 8.7 g/dL (13.5-17.5); IMMATURE GRAN ABSOLUTE AUTO 0.02 K/mm3 (0.00-0.10); IMMATURE GRAN PERCENT AUTO 0 % (0-1); LYMPHOCYTES PERCENT AUTO 8 % (21-46); MONOCYTES ABSOLUTE AUTO 1.45 K/mm3 (0.16-1.47); MONOCYTES PERCENT AUTO 17 % (4-13); Mean Corpuscular HGB 26.3 pg (26.0-34.0); Mean Corpuscular HGB Conc 28.9 g/dL (31.5-36.5); Mean Corpuscular Volume 91 fL (80-100); Mean Platelet Volume 8.6 fL (9.1-12.4); NEUTROPHILS ABSOLUTE AUTO 6.38 K/mm3 (1.96-9.15); NEUTROPHILS PERCENT AUTO 74 % (41-73); Platelet Count 349 K/mm3 (150-400); RDW Coefficient Variation 15.4 % (11.7-14.2); RDW Standard Deviation 51.1 fL (35.1-46.3); Red Blood Cell Count 3.31 M/mm3 (4.30-5.90); White Blood Cell Count 8.67 K/mm3 (4.00-11.30)
[2024-11-19 06:14] LABS: International Normalized Ratio 1.03
[2024-11-19 06:23] VITALS: BP 108/55
[2024-11-19 06:29] LABS: Albumin, Blood 2.4 g/dL (3.4-5.0); Albumin/Globulin Ratio 0.7 (0.8-1.8); Bilirubin, Total 0.2 mg/dL (0.1-1.0); Bun/Creatinine Ratio 31.1 (12.0-20.0); Calcium, Blood 8.3 mg/dL (8.5-10.1); Creatinine, Blood 0.55 mg/dL (0.60-1.20); Globulin, Blood 3.3 g/dL (2.2-4.0); Potassium, Blood 4.3 mmol/L (3.5-5.5); Total Protein, Blood 5.7 g/dL (6.4-8.2)
[2024-11-19 07:10] VITALS: BP 117/63
[2024-11-19] MEDS ORDERED: Insulin Human Lispro 100 Units/ML 3ML Syringe SC SCH (07:30)
[2024-11-19] MEDS ORDERED: Ferrous Gluconate 325 MG Tablet PO SCH (11:40)
[2024-11-19] MEDS ORDERED: FARXIGA10 MG PO (11:41)
[2024-11-19] MEDS ORDERED: ESCI5 PO (11:42)
[2024-11-19] MEDS ORDERED: Zestril30 MG PO (11:43)
[2024-11-19] MEDS ORDERED: METFORMIN HCL500 M3 PO (11:44)
[2024-11-19] MEDS ORDERED: Crestor 20 mg tablet PO (11:45)
[2024-11-19 15:13] VITALS: BP 112/64
--- NOTE | 2024-11-19 17:50 | NUR ---
SHIFT SUMMARY PT A&OX4. PT ADMITTED DUE TO SOB. PT HAD THORACENTESIS/PARACENTESIS TODAY. PT IS SBA TO TOILET. PT TOLERATED CLEAR LIQUID DIET, PT REPORTS NO NAUSEA. PT REPORTS NO CHEST PAIN/PAIN. VSS. PT ON CONT. PULSE OX. PT SATS ARE 91% ON 4 L WITH HUMIDIFIER. PT ACHS BLOOD SUGAR CHECKS, INSULIN GIVEN FOR COVERAGE AT MEALTIME. BLOOD SUGARS HAVE BEEN ELEVATED. PT HAD NEB TREATMENT BY RESPIRATORY CARE. PT CONT. OF URINE AND BM. PT AT BEDSIDE TODAY. PT IN BED, BED IN LOWEST POSITION, CALL LIGHT IN REACH
[2024-11-19 20:13] VITALS: BP 112/65
[2024-11-19] MEDS ORDERED: Insulin Glargine-Yfgn 100 Unit/mL 3 ML SYR SC ONE (20:45)
--- NOTE | 2024-11-19 23:47 | NUR ---
PT HS CBG 302 AND HAS BEEN TRENDING IN LOW 300'S T/O DAY WITH MEDIUM SCALE [employer] COVERAGE. 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
--- NOTE | 2024-11-20 04:58 | NUR ---
SHIFT SUMMARY NOC PT A/O X 4. PLEASANT AND COOPERATIVE WITH CARE. VSS. PT HAD THORACENTESIS YESTERDAY AND RESULTS ARE PENDING. HS CBG 302, HOSPITALIST NOTIFIED THAT PT DOES NOT HAVE HS LISPRO COVERAGE AND TAKES LANTUS 32 UNITS BID AT HOME. ORDER PLACED FOR ONE TIME DOSE OF 15 UNITS LANTUS. PT TOLERATING FULL LIQUID DIET. IV ABX PER EMAR. PT CURRENTLY RESTING WITH BED IN LOWEST POSITION, AND CALL LIGHT WITHIN REACH.
[2024-11-20 05:57] VITALS: BP 109/62
[2024-11-20 07:26] VITALS: BP 116/69
[2024-11-20] MEDS ORDERED: Empagliflozin 10 MG TAB PO SCH (09:00)
[2024-11-20] MEDS ORDERED: Citalopram Hydrobromide 20 MG Tab PO SCH (09:00)
[2024-11-20] MEDS ORDERED: MetFORMIN HCl 500 mg PO SCH (09:00)
[2024-11-20] MEDS ORDERED: Insulin Glargine-Yfgn 100 Unit/mL 3 ML SYR SC SCH (09:00)
[2024-11-20 11:07] LABS: Automated BF RBC Count 0.004 M/mm3 (0-0); Automated BF WBC Count 1.003 K/mm3 (0-999)
[2024-11-20 11:08] LABS: Body Fluid WBC Count 1003 /mm3 (0-999); RBC Count, Body Fluid 4000 /mm3 (0-0)
[2024-11-20 11:28] LABS: Glucose, Body Fluid 232 mg/dL; Lactate Dehydrogenase, Body Fl 223 U/L; Protein, Body Fluid 3.7 g/dL
[2024-11-20] MEDS ORDERED: Insulin Human Lispro 100 Units/ML 3ML Syringe SC SCH (11:30)
[2024-11-20 12:35] LABS: Appearance, Body Fluid Hazy (Clear); Color, Body Fluid L Yellow (None-Yellow); Total Cell Count, Body Fluid 100
[2024-11-20 14:32] VITALS: BP 112/60
--- NOTE | 2024-11-20 17:11 | NUR ---
DISCHARGE NOTE PT A&OX4. PT HAS CONFUSION AT TIMES. PT ADMITTED DUE TO SOB. PT HAD HOME O2 EVAL. RESPIRATORY CARE RECOMMENDED 4L OF OX VIA N/C ALWAYS. PT IS SBA TO TOILET. PT TOLERATED FULL LIQUID DIET, PT REPORTS NO NAUSEA FOR BREAKFAST. PT TOLERATED REGULAR DIET FOR LUNCH. PT REPORTS NO CHEST PAIN/ GENERALIZED PAIN. VSS. PT ON CONT. PULSE OX. PT SATS ARE 91% ON 4 L WITH HUMIDIFIER. SHERLYN CAME TO DROP OFF O2 EQUIPMENT. PT ACHS BLOOD SUGAR CHECKS, INSULIN GIVEN FOR COVERAGE AT MEALTIME, INSULIN ORDERS UPDATED TODAY. BLOOD SUGARS TRENDING DOWN. PT CONT. OF URINE AND BM. PT AT BEDSIDE TODAY. ULTRASOUND MANAGER CAME TO SEE PT TODAY. PT REPORTS HAVEN'T HAD BM IN A FEW DAYS, PT REPORTS STILL ABLE TO PASS GAS. PROPERTY CLAIM REP CAME TO ROUND ON PT. MEDS FAXED TO PHARM. PT LEFT WITH PERSONAL BELONGINGS. WENT OVER DISCHARGE INSTRUCTIONS AND MEDS. PT ESCORTED OUT VIA WHEELCHAIR BY THIS RN.
== END 2024-11-20 16:33 | disposition home or self-care (01) | DRG 871 ==
LOC: ER 19:09 → ERHOLD 11-17 00:45 → MEDS 11-17 00:45
PROVIDERS: Family Medicine; Internal Medicine Critical Care Medicine; Student in an Organized Health Care Education/Training Program; ADMIT Internal Medicine
PROC: 3E03329 Introduction of Other Anti-infective into Peripheral Vein, Percutaneous Approach (ICD-10-PCS; 2024-11-17)
PROC: 0W993ZZ Drainage of Right Pleural Cavity, Percutaneous Approach (ICD-10-PCS; principal; 2024-11-19)
DX: A41.9 Sepsis, unspecified organism (principal); J18.9 Pneumonia, unspecified organism; J96.01 Acute respiratory failure with hypoxia; K56.609 Unspecified intestinal obstruction, unspecified as to partial versus complete obstruction; J91.8 Pleural effusion in other conditions classified elsewhere; Z66 Do not resuscitate; I10 Essential (primary) hypertension; E11.65 Type 2 diabetes mellitus with hyperglycemia; K86.89 Other specified diseases of pancreas; K21.9 Gastro-esophageal reflux disease without esophagitis; D50.9 Iron deficiency anemia, unspecified; Z87.891 Personal history of nicotine dependence; Z99.81 Dependence on supplemental oxygen; E66.3 Overweight; Z88.0 Allergy status to penicillin; Z79.4 Long term (current) use of insulin; Z79.899 Other long term (current) drug therapy; Z79.84 Long term (current) use of oral hypoglycemic drugs; Z98.1 Arthrodesis status; Z98.890 Other specified postprocedural states; Z68.27 Body mass index [BMI] 27.0-27.9, adult
CPT/HCPCS: 32555; 36415; 71045; 71046; 71260; 74177; 74183; 80048; 80053; 82607; 82728; 82746; 82945; 82947; 83540; 83550; 83605; 83615; 83690; 84145; 84157; 84484; 85025; 85045; 85610; 85730; 87040; 87070; 87075; 87205; 88108; 88305; 88341; 88342; 89051; 93005; 93010; 94640; 94664; 94761; 94762; 96365-59; 96367; 96375; 99285-25; A9270; A9579; J0456; J0696; J1650; J1815; J1885; J2405; J7030; J7050; J7120; Q9967

== ENCOUNTER 2024-12-03 09:19 | Inpatient (IN) | payer MEDICARE, OTHER ==
[~2024-12-03] VITALS: Ht 172.7 cm; Wt 80.2 kg
[~2024-12-03 09:19] MED LIST changes: +Crestor 20 mg tablet PO; +ESCI5 PO; +FARXIGA10 MG PO; +METFORMIN HCL500 M3 PO; +Zestril30 MG PO
[2024-12-03] MEDS ORDERED: Potassium Chlo20 ME1 PO (09:47)
[2024-12-03] MEDS ORDERED: TORSE20 PO (09:48)
[2024-12-03] MEDS ORDERED: Lactated Ringer's 500 ML IV ONE (09:50)
[2024-12-03 10:04] LABS: BASOPHILS ABSOLUTE AUTO 0.06 K/mm3 (0.00-0.23); BASOPHILS PERCENT AUTO 0 % (0-2); EOSINOPHILS ABSOLUTE AUTO 0.24 K/mm3 (0.00-0.68); EOSINOPHILS PERCENT AUTO 2 % (0-6); Hematocrit 28.7 % (37.0-53.0); Hemoglobin 8.3 g/dL (13.5-17.5); IMMATURE GRAN ABSOLUTE AUTO 0.08 K/mm3 (0.00-0.10); IMMATURE GRAN PERCENT AUTO 1 % (0-1); LYMPHOCYTES ABSOLUTE AUTO 0.75 K/mm3 (0.84-5.20); LYMPHOCYTES PERCENT AUTO 5 % (21-46); MONOCYTES ABSOLUTE AUTO 1.69 K/mm3 (0.16-1.47); MONOCYTES PERCENT AUTO 11 % (4-13); Mean Corpuscular HGB Conc 28.9 g/dL (31.5-36.5); Mean Corpuscular Volume 86 fL (80-100); Mean Platelet Volume 9.5 fL (9.1-12.4); NEUTROPHILS ABSOLUTE AUTO 12.18 K/mm3 (1.96-9.15); NEUTROPHILS PERCENT AUTO 81 % (41-73); Platelet Count 448 K/mm3 (150-400); RDW Coefficient Variation 14.6 % (11.7-14.2); RDW Standard Deviation 46.2 fL (35.1-46.3); Red Blood Cell Count 3.32 M/mm3 (4.30-5.90)
[2024-12-03 10:15] LABS: Albumin, Blood 2.5 g/dL (3.4-5.0); Albumin/Globulin Ratio 0.6 (0.8-1.8); Bilirubin, Total 0.2 mg/dL (0.1-1.0); Calcium, Blood 9.9 mg/dL (8.5-10.1); Creatinine, Blood 1.25 mg/dL (0.60-1.20); Globulin, Blood 4.2 g/dL (2.2-4.0); Potassium, Blood 4.8 mmol/L (3.5-5.5); Total Protein, Blood 6.7 g/dL (6.4-8.2)
[2024-12-03] MEDS ORDERED: Azithromycin 500 MG in NS 250 ML IV ONE (11:25)
[2024-12-03] MEDS ORDERED: CefTRIAXone Sodium 1,000 MG in NS 100 ML IV ONE (11:25)
[2024-12-03] MEDS ORDERED: Lactated Ringer's 1,000 ML IV ONE (12:15)
[2024-12-03] MEDS ORDERED: NS 1,000 ML IV SCH (14:45)
[2024-12-03] MEDS ORDERED: TraZODone HCl 50 MG Tab PO PRN (14:45)
[2024-12-03] MEDS ORDERED: Prochlorperazine Edisylate 10 mg Vial IV PRN (14:45)
[2024-12-03] MEDS ORDERED: Ondansetron HCl 2 MG / ML 2ML Vial IV PRN (14:45)
[2024-12-03 14:58] LABS: International Normalized Ratio 1.01; Prothrombin Time Results 10.8 Sec (9.7-11.5)
[2024-12-03] MEDS ORDERED: Acetaminophen 325 MG TABLET PO PRN (15:00)
[2024-12-03 15:48] LABS: Influenza A, PCR NEGATIVE (NEGATIVE); Influenza B, PCR NEGATIVE (NEGATIVE); Resp Syncytial Virus, PCR NEGATIVE (NEGATIVE); SARS-Cov-2 (COVID-19) PCR, MMC NEGATIVE (NEGATIVE)
[2024-12-03 16:14] VITALS: BP 87/51
[2024-12-03] MEDS ORDERED: Insulin Human Lispro 100 Units/ML 3ML Syringe SC SCH (16:30)
[2024-12-03] MEDS ORDERED: Prinivil10 MG PO (16:30)
[2024-12-03] MEDS ORDERED: VITAMIN D31000 UNIT PO (16:31)
[2024-12-03] MEDS ORDERED: FLAX PO (16:32)
[2024-12-03] MEDS ORDERED: JOINT COMFORT-1 EACH PO (16:33)
[2024-12-03] MEDS ORDERED: Iron Chews15 MG PO (16:34)
[2024-12-03 16:45] VITALS: BP 99/57
--- NOTE | 2024-12-03 17:17 | NUR ---
PT'S CBG 45. 16 OUNCES OJ AND 6 PEANUT BUTTER GRHAM CRACKERS GIVEN. PT ALERT AND ASYMPTOMATIC. THIS RN CALLED DR. GRIJALVA AND HE STATED AFTER THE 15 MINUTE CHECK POST TREATMENT, IF CBG <70 TO GIVE 1 AMP OF D50%. SEE NOTES FOR UPDATES.
--- NOTE | 2024-12-03 17:23 | NUR ---
PT ADMITTED TO PCU 18 THIS EVENING PT BROUGHT TO ROOM VIA [facility] AND TRANSFERED HIMSELF FROM [facility] TO BED IND. THE PT IS ON 4L NC W/ SP02 >93% AND HE DENIES ANY SOB. ON TELE HE IS SR W/ SOFT BP'S. NS @ 100ML/HR STARTED PER EMAR AND THERE IS SLIGHT IMPROVEMENT ON BP . MAP >65. THE PT DENIES ANY ANGINA OR CHEST PRESSURE. WHEN CHECKING HIS CBG HIS BLOOD SUGAR WAS 45. AFTER TREAMENT WITH JUICE AND CRACKERS, HIS BLOOD SUGAR CAME UP TO 115. SEE PREVIOUS NOTES FOR DETAILS. HE IS CURRENTLY IN THE ROOM EATING DINNER. HIS WAS AT BEDSIDE AND WAS UPDATED ON CARE. CALL LIGHT IN REACH, BED IN LOW. SEE NOTES FOR ANY UPDATES.
[2024-12-03] MEDS ORDERED: TraZODone HCl 100 MG Tab PO PRN (18:20)
[2024-12-03 18:52] VITALS: BP 111/59
[2024-12-03 20:06] VITALS: BP 83/45
[2024-12-03] MEDS ORDERED: Famotidine 20 MG Tab PO SCH (21:00)
[2024-12-03] MEDS ORDERED: Insulin Glargine-Yfgn 100 Unit/mL 3 ML SYR SC SCH (21:00)
[2024-12-04] VITALS (13 sets, daily range): BP systolic 76–119; BP diastolic 48–75
[2024-12-04 04:16] LABS: BASOPHILS ABSOLUTE AUTO 0.04 K/mm3 (0.00-0.23); BASOPHILS PERCENT AUTO 0 % (0-2); EOSINOPHILS ABSOLUTE AUTO 0.25 K/mm3 (0.00-0.68); EOSINOPHILS PERCENT AUTO 2 % (0-6); Hemoglobin 7.5 g/dL (13.5-17.5); IMMATURE GRAN ABSOLUTE AUTO 0.05 K/mm3 (0.00-0.10); IMMATURE GRAN PERCENT AUTO 0 % (0-1); LYMPHOCYTES ABSOLUTE AUTO 0.66 K/mm3 (0.84-5.20); LYMPHOCYTES PERCENT AUTO 6 % (21-46); MONOCYTES ABSOLUTE AUTO 1.46 K/mm3 (0.16-1.47); MONOCYTES PERCENT AUTO 12 % (4-13); Mean Corpuscular HGB 25.5 pg (26.0-34.0); Mean Corpuscular HGB Conc 28.8 g/dL (31.5-36.5); Mean Corpuscular Volume 88 fL (80-100); Mean Platelet Volume 9.6 fL (9.1-12.4); NEUTROPHILS ABSOLUTE AUTO 9.37 K/mm3 (1.96-9.15); NEUTROPHILS PERCENT AUTO 79 % (41-73); Platelet Count 378 K/mm3 (150-400); RDW Coefficient Variation 14.6 % (11.7-14.2); RDW Standard Deviation 46.9 fL (35.1-46.3); Red Blood Cell Count 2.94 M/mm3 (4.30-5.90); White Blood Cell Count 11.83 K/mm3 (4.00-11.30)
[2024-12-04 04:48] LABS: Albumin, Blood 2.2 g/dL (3.4-5.0); Albumin/Globulin Ratio 0.6 (0.8-1.8); Bilirubin, Total 0.1 mg/dL (0.1-1.0); Bun/Creatinine Ratio 43.3 (12.0-20.0); Calcium, Blood 8.9 mg/dL (8.5-10.1); Creatinine, Blood 0.83 mg/dL (0.60-1.20); Globulin, Blood 3.7 g/dL (2.2-4.0); Potassium, Blood 4.7 mmol/L (3.5-5.5); Total Protein, Blood 5.9 g/dL (6.4-8.2)
--- NOTE | 2024-12-04 05:50 | NUR ---
SHIFT SUMMARY PATIENT A&O X4. VITAL SIGNS STABLE. PATIENT ON 4L O2 VIA NC. NO ACUTE CONDITIONS NOTED OVERNIGHT.
[2024-12-04] MEDS ORDERED: Citalopram Hydrobromide 20 MG Tab PO SCH (09:00)
[2024-12-04] MEDS ORDERED: CefTRIAXone Sodium 1,000 MG in NS 100 ML IV SCH (12:00)
[2024-12-04 12:58] LABS: BASOPHILS ABSOLUTE AUTO 0.05 K/mm3 (0.00-0.23); BASOPHILS PERCENT AUTO 0 % (0-2); EOSINOPHILS ABSOLUTE AUTO 0.18 K/mm3 (0.00-0.68); EOSINOPHILS PERCENT AUTO 2 % (0-6); Hematocrit 26.9 % (37.0-53.0); Hemoglobin 7.6 g/dL (13.5-17.5); IMMATURE GRAN ABSOLUTE AUTO 0.08 K/mm3 (0.00-0.10); IMMATURE GRAN PERCENT AUTO 1 % (0-1); LYMPHOCYTES PERCENT AUTO 6 % (21-46); MONOCYTES ABSOLUTE AUTO 1.33 K/mm3 (0.16-1.47); MONOCYTES PERCENT AUTO 11 % (4-13); Mean Corpuscular HGB 25.2 pg (26.0-34.0); Mean Corpuscular HGB Conc 28.3 g/dL (31.5-36.5); Mean Corpuscular Volume 89 fL (80-100); Mean Platelet Volume 9.3 fL (9.1-12.4); NEUTROPHILS ABSOLUTE AUTO 9.37 K/mm3 (1.96-9.15); NEUTROPHILS PERCENT AUTO 80 % (41-73); Platelet Count 404 K/mm3 (150-400); RDW Coefficient Variation 14.6 % (11.7-14.2); RDW Standard Deviation 47.5 fL (35.1-46.3); Red Blood Cell Count 3.02 M/mm3 (4.30-5.90); White Blood Cell Count 11.71 K/mm3 (4.00-11.30)
--- NOTE | 2024-12-04 16:11 | NUR ---
MET WITH PATIENT AND FAMILY. PULMONOLOGY AT BEDSIDE. DISCUSSED PROBABLE CANCER DIAGNOSIS. PATHOLOGY IS PENDING, THEN ONCOLOGY WILL FOLLOW UP WITH TREATMENT OPTIONS. PROVIDED THERAPUTIC LISTENING AND CONVERSATION.
--- NOTE | 2024-12-04 16:57 | NUR ---
SHIFT NOTE: PT ALERT AND ABLE TO ANSWER QUESTIONS APPROPRIATELY. HE IS ORIENTED TO SELF. HE IS UNABLE TO STATE WHERE HE IS OR WHEN IT IS WITHOUT DIRECTION. THE BED ALARM IS ON FOR SAFETY. HE IS IN SR. TELE READ SOME CHANGES, EKG DONE AND PLACED IN PAPER CHART. BP SOFT PT REMAINS ASSYMPTOMATIC. MD NOTIFIED. NS RUNNING PER EMAR AT 100ML/HR. 1-3L NC TO MAINTAIN SPO2>90%. PT HAD THORACENTISIS TODAY WITH 1.3L DRAINED-SEE RADIOLOGY NOTE. PT HAS PRODUCTIVE COUGH AFTERWARDS. AT BEDSIDE AND UPDATED ON PLAN OF CARE. CARE CONTINUES
--- NOTE | 2024-12-04 18:37 | NUR ---
humidity added to pt's n.c. O2 delivery per his request.
[2024-12-05 03:47] VITALS: BP 109/69
[2024-12-05 03:55] LABS: BASOPHILS ABSOLUTE AUTO 0.03 K/mm3 (0.00-0.23); BASOPHILS PERCENT AUTO 0 % (0-2); EOSINOPHILS PERCENT AUTO 3 % (0-6); Hematocrit 25.5 % (37.0-53.0); Hemoglobin 7.2 g/dL (13.5-17.5); IMMATURE GRAN ABSOLUTE AUTO 0.03 K/mm3 (0.00-0.10); IMMATURE GRAN PERCENT AUTO 0 % (0-1); LYMPHOCYTES ABSOLUTE AUTO 0.66 K/mm3 (0.84-5.20); LYMPHOCYTES PERCENT AUTO 7 % (21-46); MONOCYTES ABSOLUTE AUTO 1.19 K/mm3 (0.16-1.47); MONOCYTES PERCENT AUTO 12 % (4-13); Mean Corpuscular HGB 24.9 pg (26.0-34.0); Mean Corpuscular HGB Conc 28.2 g/dL (31.5-36.5); Mean Corpuscular Volume 88 fL (80-100); Mean Platelet Volume 9.3 fL (9.1-12.4); NEUTROPHILS ABSOLUTE AUTO 7.51 K/mm3 (1.96-9.15); NEUTROPHILS PERCENT AUTO 77 % (41-73); Platelet Count 360 K/mm3 (150-400); RDW Coefficient Variation 14.6 % (11.7-14.2); RDW Standard Deviation 47.5 fL (35.1-46.3); Red Blood Cell Count 2.89 M/mm3 (4.30-5.90); White Blood Cell Count 9.72 K/mm3 (4.00-11.30)
[2024-12-05 04:14] LABS: Albumin, Blood 2.1 g/dL (3.4-5.0); Albumin/Globulin Ratio 0.6 (0.8-1.8); Bilirubin, Total 0.1 mg/dL (0.1-1.0); Bun/Creatinine Ratio 26.3 (12.0-20.0); Calcium, Blood 8.7 mg/dL (8.5-10.1); Creatinine, Blood 0.72 mg/dL (0.60-1.20); Globulin, Blood 3.7 g/dL (2.2-4.0); Magnesium, Blood 1.9 mg/dL (1.6-2.4); Potassium, Blood 4.5 mmol/L (3.5-5.5); Total Protein, Blood 5.8 g/dL (6.4-8.2)
--- NOTE | 2024-12-05 06:11 | NUR ---
SHIFT SUMMARY. PATENT ORIENTED TO SELF AND YEAR. VITAL SIGNS STABLE. PATIENT ON 4L O2 VIA NC. PATIENT IMPULSIVE WHEN GETTING UP AND DOESN'T USE CALL LIGHT APPROPRIATELY. BED ALARM IN USE. NO ACUTE CONDITIONS NOTED OVERNIGHT.
[2024-12-05 07:21] VITALS: BP 109/65
[2024-12-05 11:25] VITALS: BP 99/54
[2024-12-05] MEDS ORDERED: CEFP200 PO (14:42)
--- NOTE | 2024-12-05 15:31 | NUR ---
DISCHARGE NOTE: PT ALERT AND ANSWERING QUESTIONS APPROPRIATELY THIS AM. HIS AND DAUGHTER WERE AT BEDSIDE AND UPDATED ON PLAN OF CARE. PT DISCHARGED AT APPROX 1315. TELE AND PIVS REMOVED BEFORE DISCHARGED. PT EDUCATED ON FOLLOW UP CARE AND REFERRALS. PT GIVEN WRITTEN INSTRUCTIONS AND DENIES ANY FURTHER QUESTIONS OR CONCERNS AT TIME OF DISCHARGE.
== END 2024-12-05 15:13 | disposition home health service (06) | DRG 871 ==
LOC: ER 09:19 → PCU 14:41 → ERHOLD 14:41 → PCU 14:41
PROVIDERS: Student in an Organized Health Care Education/Training Program; ADMIT Internal Medicine
PROC: 3E03329 Introduction of Other Anti-infective into Peripheral Vein, Percutaneous Approach (ICD-10-PCS; 2024-12-03)
PROC: 0BBN3ZX Excision of Right Pleura, Percutaneous Approach, Diagnostic (ICD-10-PCS; principal; 2024-12-04)
PROC: 0W993ZZ Drainage of Right Pleural Cavity, Percutaneous Approach (ICD-10-PCS; 2024-12-04)
DX: A41.9 Sepsis, unspecified organism (principal); J18.9 Pneumonia, unspecified organism; J96.21 Acute and chronic respiratory failure with hypoxia; J44.0 Chronic obstructive pulmonary disease with (acute) lower respiratory infection; J91.0 Malignant pleural effusion; C77.2 Secondary and unspecified malignant neoplasm of intra-abdominal lymph nodes; C77.1 Secondary and unspecified malignant neoplasm of intrathoracic lymph nodes; E87.1 Hypo-osmolality and hyponatremia; N17.9 Acute kidney failure, unspecified; E87.20 Acidosis, unspecified; E87.3 Alkalosis; C34.31 Malignant neoplasm of lower lobe, right bronchus or lung; C34.12 Malignant neoplasm of upper lobe, left bronchus or lung; Z66 Do not resuscitate; E11.9 Type 2 diabetes mellitus without complications; E86.1 Hypovolemia; R79.1 Abnormal coagulation profile; I10 Essential (primary) hypertension; E87.8 Other disorders of electrolyte and fluid balance, not elsewhere classified; I45.10 Unspecified right bundle-branch block; D64.9 Anemia, unspecified; Z99.81 Dependence on supplemental oxygen; Z88.0 Allergy status to penicillin; Z79.84 Long term (current) use of oral hypoglycemic drugs; Z79.4 Long term (current) use of insulin; Z98.1 Arthrodesis status; Z87.891 Personal history of nicotine dependence
CPT/HCPCS: 0241U; 32408; 32555; 36415; 71045; 71046; 71260; 77012; 80053; 82947; 83605; 83735; 83880; 84484; 85025; 85379; 85610; 85730; 87040; 87070; 87205; 88108; 88305; 88341; 88342; 93005; 93010; 94762; 96365-59; 96367; 97110; 97161; 97530; 99285-25; A9270; J0456; J0696; J1815; J7030; J7050; J7120; Q9967